=== PATIENT | female | born 1980 | race Caucasian/White ===

== ENCOUNTER 2019-04-30 05:00 | Day surgery (SDC) | payer OTHER ==
[~2019-04-30 05:00] MED LIST: CYMBALTA60 MG; LAMICTAL100 MG
== END 2019-04-30 16:25 | disposition home or self-care (01) ==
LOC: CIR.AMB 05:00
DX: K64.8 Other hemorrhoids (principal); K62.89 Other specified diseases of anus and rectum

== ENCOUNTER 2020-11-15 10:00 | Day surgery (SDC) | payer OTHER | END 2020-11-15 13:40 | disposition home or self-care (01) | LOC: AMB-ENDOS 10:00 | PROVIDERS: ATTEND Colon & Rectal Surgery | DX: D13.1 Benign neoplasm of stomach (principal); K44.9 Diaphragmatic hernia without obstruction or gangrene; Z20.822 Contact with and (suspected) exposure to COVID-19 ==

== ENCOUNTER 2021-09-19 09:38 | Emergency (ER) | payer OTHER ==
[~2021-09-19] VITALS: Ht 157.5 cm; Wt 54.4 kg
[2021-09-19] MEDS ORDERED: LEVSIN/SL0.125 MG PO (16:58)
[2021-09-19] MEDS ORDERED: INTESTINEX680 M1 PO (16:58)
== END 2021-09-19 17:29 ==
LOC: ER 09:38
DX: K52.9 Noninfective gastroenteritis and colitis, unspecified (principal)

== ENCOUNTER 2022-09-30 13:08 | Outpatient (CLI) | payer OTHER ==
[~2022-09-30 13:08] MED LIST changes: +INTESTINEX680 M1 PO; +LEVSIN/SL0.125 MG PO
== END 2022-09-30 13:27 | disposition home or self-care (01) ==
LOC: EKG 13:08
DX: Z01.810 Encounter for preprocedural cardiovascular examination (principal); K59.00 Constipation, unspecified; N39.0 Urinary tract infection, site not specified; K62.5 Hemorrhage of anus and rectum; D59.8 Other acquired hemolytic anemias; Z11.59 Encounter for screening for other viral diseases; Z20.828 Contact with and (suspected) exposure to other viral communicable diseases; D68.9 Coagulation defect, unspecified

== ENCOUNTER → 2023-09-16 07:35 | Outpatient (CLI) | payer OTHER | END | disposition home or self-care (01) | LOC: RAD 07:35 | PROVIDERS: ATTEND Colon & Rectal Surgery | DX: K59.00 Constipation, unspecified (principal); N39.0 Urinary tract infection, site not specified; K62.5 Hemorrhage of anus and rectum; D59.8 Other acquired hemolytic anemias; Z11.59 Encounter for screening for other viral diseases; Z20.828 Contact with and (suspected) exposure to other viral communicable diseases; D68.9 Coagulation defect, unspecified; D23.5 Other benign neoplasm of skin of trunk; K60.1 Chronic anal fissure; N64.4 Mastodynia ==

== ENCOUNTER 2025-03-18 20:27 | Emergency (ER) | payer OTHER ==
[~2025-03-18] VITALS: Ht 157.5 cm; Wt 57.6 kg
[2025-03-18 21:41] LABS: BASO % 0.6 % (0.1-1.2); EOS # 0.47 (0.04-0.54); EOS % 4.5 % (0.7-7.0); LYMPH # 3.01 (1.18-3.74); LYMPH % 29.1 % (19.3-53.1); MEAN PLATELET VOLUME 9.30 fl (9.4-12.4); MONO # 1.21 (0.24-0.82); MONO % 11.7 % (4.7-12.5); NEUT # 5.56 (1.56-6.13); NEUT % 53.9 % (34.0-71.1); RED CELL DISTRIBUTION WIDTH 15.1 % (11.6-14.4)
[2025-03-18 21:58] LABS: URINE APPEARANCE Clear; URINE BILIRRUBIN Negative (NEGATIVE); URINE BLOOD Negative; URINE COLOR Yellow; URINE GLUCOSE Negative (NEGATIVE); URINE KETONE Trace (NEGATIVE); URINE LEUKOCYTE Negative; URINE NITRATE Negative; URINE PROTEIN Trace (NEGATIVE); URINE UROBILINOGEN 1.0 E.U./dl
[2025-03-18 21:59] LABS: URINE EPITHELIAL CELLS 92.5 uL (0.0-38.8); URINE RBC 29.9 uL (0.0-20.8); URINE WBC 33.6 uL (0.0-23.2)
[2025-03-18 21:59] LABS: BUN CREA RATIO 24.0 (7.0-25.0); CREATININE SERUM 0.79 mg/dL (0.55-1.02); GFR 78.35; GLUCOSE FASTING 74.0 mg/dL (65-100); OSMOLALITY SERUM 284.0 MOSM/KG (275-295)
[2025-03-18 22:19] LABS: TYPE CELLS SQUAMOUS; URINE BACTERIA > 9821.5 uL (0.0-1933); URINE CAST 0.87 uL (0.0-1.40); URINE MUCUS MODERATE
== END 2025-03-19 00:12 | disposition home or self-care (01) ==
LOC: ER 20:27
PROVIDERS: Emergency Medicine
DX: N39.0 Urinary tract infection, site not specified (principal); R10.9 Unspecified abdominal pain; Z91.013 Allergy to seafood; F32.89 Other specified depressive episodes; K57.30 Diverticulosis of large intestine without perforation or abscess without bleeding